=== PATIENT | male | born 1950 | race Caucasian/White ===

== ENCOUNTER 2019-01-08 15:03 | Observation (INO) | payer OTHER ==
[2019-01-08] MEDS ORDERED: LR 1,000 ML IV SCH ×2 (16:30→19:30)
[2019-01-08] MEDS ORDERED: ERTAPENEM 1 GM in NS 100 ML IV ONE (16:30)
[2019-01-08] MEDS ORDERED: BUPIVACAINE/EPI 0.5% 30 ML SDV ONE (16:42)
[2019-01-08] MEDS ORDERED: LR 1,000 ML IV ONE (17:12)
--- NOTE | 2019-01-08 17:19 | PDANEPAE ---
ANE History of Present Illness acute cholecystitis ANE Past Medical History - Cardiovascular History Hx Hypertension: No Hx Arrhythmias: No Hx Chest Pain: No Hx Coronary Artery / Peripheral Vascular Disease: No Hx CHF / Valvular Disease: No Hx Palpitations: No - Pulmonary History Hx COPD: No Hx Asthma/Reactive Airway Disease: No Hx Recent Upper Respiratory Infection: No Hx Oxygen in Use at Home: No Hx Sleep Apnea: No - Neurologic History Hx Cerebrovascular Accident: No Hx Seizures: No Hx Dementia: No - Endocrine History Hx Diabetes: No Hypothyroid: Yes Hyperthyroid: No Obesity: no - Renal History Hx Renal Disorders: Yes Renal History Comment: CKD- creatinine 1.8 - Liver History Hx Hepatic Disorders: No - GI History GERD: no Hx Gastrointestinal Disorders: Yes Gastrointestinal History Comment: acute cholecystitis ANE Review of Systems Review of systems is: negative Review of Systems: - Exercise capacity Exercise capacity: >=4 METS ANE Patient History - Allergies Allergies/Adverse Reactions: ciprofloxacin [From Cipro] Allergy (Verified 01/08/19 15:13) doxycycline Allergy (Verified 01/08/19 15:13) - Home Medications Home medications: home medication list seen and reviewed Home Medications: Flonase Allergy Relief 01/08/19 [Last Taken Unknown] Levothyroxine [Synthroid 50 mcg (*)] 01/08/19 [Last Taken Unknown] Lovastatin [Altoprev] 40 mg PO 01/08/19 [Last Taken Unknown] SUMAtriptan 01/08/19 [Last Taken Unknown] valACYclovir [Valtrex (*)] 01/08/19 [Last Taken Unknown] - NPO status NPO Status: no food or drink >8 hours NPO Since - Liquids (Date): 01/08/19 NPO Since - Liquids (Time): 10:30 NPO Since - Solids (Date): 01/07/19 NPO Since - Solids (Time): 10:30 - Anes Hx Anes Hx: no prior problems - Smoking Hx Smoking Status: Never smoked ANE Labs/Vital Signs - Labs Result Diagrams: 01/08/19 15:30 01/08/19 15:30 - Vital Signs Vital Signs: reviewed preoperatively; see RN documention for details Blood Pressure: 93/53 Heart Rate: 89 Respiratory Rate: 16 O2 Sat (%): 93 Height: 172.72 cm Weight: 81.647 kg ANE Physical Exam - Airway Neck exam: FROM Mallampati Score: Class 2 Mouth exam: normal dental/mouth exam - Pulmonary Pulmonary: no respiratory distress - Cardiovascular Cardiovascular: regular rate and rhythym - ASA Status ASA Status: II, E ANE Anesthesia Plan Anesthesia Plan: general endotracheal anesthesia
[2019-01-08] MEDS ORDERED: MIDAZOLAM 2 MG/2 ML VIAL IVP ONE (17:21)
--- NOTE | 2019-01-08 17:23 | GHP ---
[f rep st] HISTORY AND PHYSICAL DATE OF ADMISSION: 01/08/2019 CHIEF COMPLAINT: Right upper quadrant pain. PRESENT ILLNESS: A 68-year-old male who has had right upper quadrant pain for several days, went to the ER at [facility] 2 days ago where gallstones were identified. He was sent home, told to benito nogueira a surgeon. He has had almost constant pain since that time. Getting worse and referred to me fo r evaluation. Denies any scleral icterus or dark urine. ALLERGIES: Cipro and doxycycline. CURRENT MEDICATIONS: Acyclovir, Lovastatin, lisinopril, aspirin. SOCIAL HISTORY: Nonsmoker. Wine, 2 glasses a night. Retired banker. . PREVIOUS SURGERY: Spine surgery through both the anterior and posterior approach. Lower midline inc ision. REVIEW OF SYSTEMS: Denies asthma, heart trouble, heart attacks, diabetes, epilepsy, rheumatic fever. PHYSICAL EXAM: GENERAL: Pleasant adult male. HEENT: No scleral icterus. Pharynx clear. NECK: S upple without adenopathy. LUNGS: Clear. HEART: Normal S1, S2 without murmur. ABDOMEN: Very tend er in the right upper quadrant. Positive Mondragon sign. Healed lower infraumbilical incision. LOWER EXTREMITIES: Grossly normal. NEUROLOGIC: Grossly normal. ASSESSMENT: Biliary colic with acute cholecystitis. RECOMMENDATIONS: Laparoscopic cholecystectomy. Risks and benefits of the surgery including potentia l for an open operation, infection, bleeding, injury to other structures, anesthetic complications, e tc. All explained to the patient and the . /[id number]/MODL
[2019-01-08] MEDS ORDERED: MIDAZOLAM 2 MG/2 ML VIAL ONE (17:24)
[2019-01-08] MEDS ORDERED: fentaNYL 100 MCG/2 ML INJ ONE ×2 (17:28→20:02)
[2019-01-08] MEDS ORDERED: PROPOFOL 200 MG/20 ML VIAL ONE (17:32)
[2019-01-08] MEDS ORDERED: DEXAMETHASONE 4 MG/ML VIAL ONE ×2 (17:33)
[2019-01-08] MEDS ORDERED: ONDANSETRON 4 MG/2 ML VIAL ONE (17:33)
[2019-01-08] MEDS ORDERED: ROCURONIUM 50 MG/5 ML VIAL ONE (17:33)
[2019-01-08] MEDS ORDERED: LIDOCAINE 2% 5 ML SDV ONE (17:40)
[2019-01-08] MEDS ORDERED: METOCLOPRAMIDE 10 MG/2 ML VIAL IVP PRN (18:28)
[2019-01-08] MEDS ORDERED: ACETAMINOPHEN 500 MG TAB PO PRN (18:28)
[2019-01-08] MEDS ORDERED: PROMETHAZINE HCL 25 MG/ML INJ IVP PRN (18:28)
[2019-01-08] MEDS ORDERED: LR 500 ML IV PRN (18:28)
[2019-01-08] MEDS ORDERED: NALOXONE HCL 0.4 MG/ML INJ IVP PRN (18:28)
[2019-01-08] MEDS ORDERED: HYDROmorphONE/DILAUDID 2 MG/ML INJ IVP PRN (18:28)
[2019-01-08] MEDS ORDERED: LABETALOL HCL 5 MG/ML 20 ML MDV IVP PRN (18:28)
[2019-01-08] MEDS ORDERED: PHENYLEPHRINE HCL 100 MCG/ML SYR IVP PRN (18:28)
[2019-01-08] MEDS ORDERED: ALBUTEROL 3 ML DEYVIAL IH PRN (18:28)
[2019-01-08] MEDS ORDERED: MEPERIDINE 25 MG/0.5 ML AMP IVP PRN (18:28)
[2019-01-08] MEDS ORDERED: oxyCODONE IR 5 MG TAB PO PRN (18:28)
[2019-01-08] MEDS ORDERED: SURGIFLO MATRIX KIT WITH THROMBIN 8 ML TP ONE ×2 (18:39→18:44)
[2019-01-08] MEDS ORDERED: THROMBIN(HUM PLAS)/FIBRINOG/CA 5 ML VIAL TP ONE (18:40)
[2019-01-08] MEDS ORDERED: SUGAMMADEX SODIUM 200 MG/2 ML VIAL IVP ONE (19:01)
[2019-01-08] MEDS ORDERED: HYDROmorphONE/DILAUDID 1 MG/ML INJ IVP PRN (19:18)
[2019-01-08] MEDS ORDERED: ONDANSETRON 4 MG/2 ML VIAL IVP PRN (19:18)
--- NOTE | 2019-01-08 19:18 | POSTOPPROG ---
Post Op Note Date of Operation: 01/08/19 Surgeon: Dmitry Wells Pre-op Diagnosis: cholecystitis Post-op Diagnosis: acute cholecystitis Indication: same Procedure: lap choly Findings: actue gallbladder Inf/Abcess present in the surg proc area at time of surgery?: No EBL: 50-100
[2019-01-08] MEDS ORDERED: HYDROCODONE/APAP 5/325 TAB PO PRN (19:20)
[2019-01-08] MEDS: fentaNYL 100 MCG/2 ML INJ IVP PRN ×2 (20:05→20:18)
--- NOTE | 2019-01-08 20:33 | GOP ---
[f rep st] OPERATIVE REPORT DATE OF OPERATION: SURGEON: Dmitry Wells MD PREOPERATIVE DIAGNOSIS: Cholelithiasis, cholecystitis. POSTOPERATIVE DIAGNOSIS: Acute cholecystitis. PROCEDURE PERFORMED: Laparoscopic cholecystectomy. FINDINGS: INDICATIONS: A 68-year-old male with 3 or 4 days of constant right upper quadrant pain. Ultrasound documented cholelithiasis at another facility. DESCRIPTION OF PROCEDURE: Under general anesthetic, the abdomen scrubbed with ChloraPrep, draped in the usual sterile fashion. Infraumbilical incision made. Veress needle used to achieve pneumoperito neum. 12 mm port placed. Eventually, three 5 mm ports in the upper abdomen. Upon visualizing the v iscera, the gallbladder was completely encased in adherent omentum. This was carefully lysed with lizzy th blunt and sharp dissection, and eventually, the gallbladder could be pushed cephalad. It was cameron ry red with areas of impending gangrene. Eventually, the Trice pouch area was identified, althoug h this area was encased in fat and quite edematous. Careful dissection eventually showed the undersi de of the gallbladder. The cystic artery was identified and taken. A clear window was made above th is, identifying the cystic plate and then the cystic duct was the only structure remaining, which was clipped and divided. The gallbladder was removed from below upward with electrocautery. It was justus te embedded in the liver bed and when it was finally removed, it was somewhat raw surface, which was treated with some Justin for additional hemostasis. The gallbladder was placed in an Endopouch. A B del rosario drain was placed in the subhepatic space. There was no suggestion of any bile leak. The drain was brought out through 1 of the lateral port sites. Fascial defect at the umbilicus closed with 0 V icryl, skin with 4-0 Vicryl and Dermabond. Patient tolerated the procedure well. /[id number]/MODL
[2019-01-09] MEDS ORDERED: valACYclovir 500 MG TAB PO PRN (07:00)
[2019-01-09] MEDS ORDERED: ERTAPENEM 1 GM in NS 100 ML IV SCH (08:00)
--- NOTE | 2019-01-09 10:31 | GDS ---
[f rep st] DISCHARGE SUMMARY PRESENT ILLNESS: The patient was admitted with acute cholecystitis. HOSPITAL COURSE: The patient underwent a difficult laparoscopic cholecystectomy and a JORDAN drain was l eft in place. It will be removed prior to discharge. FINAL DIAGNOSIS: Acute cholecystitis. OPERATION: Laparoscopic cholecystectomy. DISPOSITION: Home. Follow up with Dr. Wells in a week. /[id number]/MODL
--- NOTE | 2019-01-09 10:43 | ASMTLACE ---
LACE Length of stay for Answers: Less than 1 day current admission Acuity / Level of Answers: Yes Care: Did the patient have an inpatient admission? Comorbidities - select Answers: Moderate or severe liver all that apply or renal disease Other Notes: Hypothyroid, prior spin al surgery # of Emergency department Answers: 1-2 visits in the last 6 months Score: 9 Date Signed: 01/09/2019 10:42 AM Electronically Signed By:Livia Ga RN
--- NOTE | 2019-01-09 11:18 | POSTANESTH ---
Post Anesthetic Evaluation Cardiovascular Status: Normal, Stable Respiratory Status: Normal, Stable Level of Consciousness/Mental Status: Can Participate in Eval Pain Control: Adequate, Prn Tx Ordered Nausea/Vomiting Control: Adequate, Prn Tx Ordered Complications Possibly Related to Anesthesia: None Noted
--- NOTE | 2019-01-09 11:49 | ASDISCHSUM ---
Discharge Information Plan Status:Home with No Needs Medically Cleared to Leave:01/08/2019 Discharge Date:01/08/2019 CM D/C Disposition:Home, Routine, Self-Care ADT D/C Disposition: Projected Discharge Date:01/08/2019 Transportation at D/C:Family Discharge Delay Reason: Follow-Up Date:01/08/2019 Discharge Slot:1 - 8:01 am - 12:00 noon Final Diagnosis:Acute cholecystitis, gallstones, s/p lap yifan Placement Information Patient Contact Information Contact Name:BLADIMIR Relationship: Address:[address] [address] [facility] Work Phone: [facility]:[place] Elsie Phone: [facility]/Zip Code:[place] [address] Email: Financial Information Financial Class:Medicare Advantage Plans Primary Plan Desc:[employer] PÉREZ MEDICARE ADV Primary Plan Number:[id number] Secondary Plan Desc: Secondary Plan Number: Assessment Information LACE LACE Length of stay for Answers: Less than 1 day current admission Acuity / Level of Answers: Yes Care: Did the patient have an inpatient admission? Comorbidities - select Answers: Moderate or severe liver all that apply or renal disease Other Notes: Hypothyroid, prior spin al surgery # of Emergency department Answers: 1-2 visits in the last 6 months Score: 9 Date Signed: 01/09/2019 10:42 AM Electronically Signed By:Livia Ga RN Intervention Information Intervention Type:*Incorrect Registration Date of Service:01/09/2019 11:04 AM Patient Type:Inpatient Staff Member:Susan Romero Hours: Discipline: Severity: Comment:
--- NOTE | 2019-01-09 11:51 | ASMTCMCOM ---
CM Note CM Note Notes: Reviewed chart. Pt presented to the Emergency Department with worsening right upper quadrant pain. Pt was evaluated at [facility] a couple of days prior to being seen at [facility]. Pt admitted for further evaluation and treatment. He was found to have gallstones and is s/p a lap yifan. History includes hypothyroid, previous spinal surgery. Pt is a retired banker and is . Per MD notes, pt to discharge home independently with family support and no identified needs today. Pt to follow up as directed. No IM/LOBO forms signed, admission less than 24 hrs. CM available for any further issues or concerns. Discharge Plan: Home independently with family support Date Signed: 01/09/2019 10:57 AM Electronically Signed By:Livia Ga RN
[2019-01-09 13:25] VITALS: BP 120/76
[2019-01-09] MEDS ORDERED: PRAVASTATIN SODIUM 40 MG TAB PO SCH (22:00)
[2019-01-09] MEDS ORDERED: LISINOPRIL 2.5 MG TAB PO SCH (22:00)
[2019-01-10] MEDS ORDERED: LEVOTHYROXINE 50 MCG TAB PO SCH (06:00)
== END 2019-01-09 14:40 | disposition home or self-care (01) ==
LOC: INTOOBSV 16:35 → F3E 21:05
PROVIDERS: ADMIT Surgery; ATTEND Surgery
PROC: 0FT44ZZ Resection of Gallbladder, Percutaneous Endoscopic Approach (ICD-10-PCS; principal; 2019-01-08 17:00)
DX: K81.0 Acute cholecystitis (principal)
CPT/HCPCS: 47562; 88304; G0378; J1100; J1335; J2250; J2405; J2704; J3010